=== PATIENT | female | born 1935 | race Caucasian/White ===

== ENCOUNTER → 2020-05-02 09:29 | Outpatient (CLI) | payer MEDICARE, SELFPAY ==
--- NOTE | 2020-05-02 10:00 | MRI_ITS ---
STUDY: MRI THORACIC SPINE WITHOUT CONTRAST REASON FOR EXAM: Female, 85 years old. Back pain, scoliosis TECHNIQUE: Standardized fat and water weighted pulse sequences were obtained in the sagittal and axial planes. COMPARISON: None. FINDINGS: Normal kyphosis of the thoracic spine. Mild dextroscoliosis of the thoracolumbar spine. T1-2, T2-3, T3-4, T4-5, T5-6, T6-7, T7-8, T8-9, T9-10, T10-11, T11-12: At T6/T7, T7/T8, T8/T9, T9/T10, T10/T11, and T11/T12 there are mild broad disc protrusions producing mild spinal stenosis but no cord compression. Associated Modic type I endplate changes at T7/T8 and T12/L1. Normal visualized thoracic cord. Normal conus medullaris that terminates at the L1.. The soft tissue structures are unremarkable. MRI/Spine Thoracic (Routine) IMPRESSION: Mild dextroscoliosis of the thoracolumbar spine with degenerative disc disease but no cord compression. Electronically Signed: Joselito Ashley MD at 12:00 EDT Tel , Service support ,
== END ==
PROVIDERS: PCP Internal Medicine Infectious Disease; Referring Provider Nurse Practitioner Family; Visit Provider Nurse Practitioner Family
DX: M41.34 Thoracogenic scoliosis, thoracic region (principal); M54.6 Pain in thoracic spine; M54.14 Radiculopathy, thoracic region; M47.814 Spondylosis without myelopathy or radiculopathy, thoracic region
CPT/HCPCS: 72146

== ENCOUNTER → 2021-02-27 18:00 | Outpatient (REF) | payer MEDICARE, SELFPAY ==
[2021-02-28 08:38] LABS: Mucous, Urine 0 SEEN /hpf (<or=2+); Red Blood Cells-Urine 0 SEEN /hpf (0-5)
[2021-02-28 09:27] LABS: Color, Urine Yellow (Yellow); Glucose, Dipstick Normal (Normal); Ketone-Dipstick Negative (Negative); Leukocyte Esterase-Dipstick 100 /ul (Negative); Nitrite-Dipstick Negative (Negative); Occult Blood-Urine Negative /ul (Negative); Protein-Dipstick Negative (Negative); Urine Bilirubin Dipstick Negative (Negative); Urine Clarity Sl. Cloudy (Clear); Urine Urobilinogen Normal (Normal)
[2021-02-28 09:41] LABS: Bacteria RARE /hpf (None Seen); Squamous Epithelial Cells - UA 0-5 SEEN /hpf (5-10); White Blood Cells 0-5 SEEN /hpf (0-5)
== END ==
LOC: OLS.DANBUR 18:00
DX: R41.82 Altered mental status, unspecified (principal)
CPT/HCPCS: 81001; 87086; 87088

== ENCOUNTER 2021-03-01 19:29 | Emergency (ER) | payer MEDICARE, SELFPAY ==
[2021-03-01 19:30] VITALS: BP 182/94; PULSE 99; RESP 18; TEMP 36.3; O2SAT 100; BMI 16.7
[2021-03-01 19:37] VITALS: O2SAT 100
--- NOTE | 2021-03-01 20:19 | EKG12_ITS ---
Test Reason : FALL Blood Pressure : / mmHG Vent. Rate : 070 BPM Atrial Rate : 070 BPM P-R Int : 156 ms QRS Dur : 086 ms QT Int : 382 ms P-R-T Axes : 080 -27 065 degrees QTc Int : 412 ms Normal sinus rhythm Normal ECG Confirmed by MYLA PONCE, ADEN ([id number]), visual effects editor NAKIA HOU ([id number]) on 03/03/2021 9:09:13 AM Referred By: GARCIA Confirmed By:ADEN LANZA MD
--- NOTE | 2021-03-01 20:21 | EDS_ITS ---
HPI History of Present Illness Chief Complaint: Fall Informant: patient and family Onset/Context/Timing Onset: Today Timing: Continuous Current Severity: Mild Maximum Severity: Mild Narrative Narrative: 85-year-old female history of dementia lives in a fdc. Daughter is at bedside and is given me the history. Poorly the patient had been doing well they thought she had developed a UTI on Tuesday and started on antibiotics. Today she was visiting with family at the fdc and after they left the fdc found her down on the floor. Reportedly was hypoxic. She does have a history of chronic pain. And she is DNR. Prior similar symptoms: Yes Recent Illness/Hospitalization: No PFSH PFSH Medical History (Updated 03/01/21 @ 20:43 by Franck Baird) Anxiety disorder COPD (chronic obstructive pulmonary disease) Dementia GERD (gastroesophageal reflux disease) HTN (hypertension) Hypercholesteremia Hyperglycemia Hypothyroid Major depression Osteoarthritis Sciatica of left side Allergy/AdvReac Type Severity Reaction Status Date / Time clindamycin AdvReac PT UNSURE Verified 03/01/21 19:37 OF REACTION nitrofurantoin AdvReac PT UNSURE Verified 03/01/21 19:37 [From Macrobid] OF REACTION Penicillins AdvReac PT UNSURE Verified 03/01/21 19:37 OF REACTION Sulfa (Sulfonamide AdvReac PT UNSURE Verified 03/01/21 19:37 Antibiotics) OF REACTION tizanidine AdvReac PT UNSURE Verified 03/01/21 19:37 OF REACTION Social History Smoking Status: Unknown if ever smoked ROS ROS ED ROS Narrative No recent illness. Patient denies any complaints. She is demented however. Review of Systems ROS Unobtainable: due to mental status Constitutional Constitutional ED: Denies chills or fever(s) Eyes Eyes: Denies change in vision ENT ENT ED: Denies sore throat Cardiovascular Cardiovascular: Denies chest pain Respiratory/Chest Respiratory/Chest: Denies cough or dyspnea Gastrointestinal Gastrointestinal: Denies abdominal pain, diarrhea, nausea or vomiting Genitourinary Genitourinary ED: Denies dysuria or hematuria Musculoskeletal Musculoskeletal: Denies myalgias Integumentary Denies rash Neurologic Neurologic: Denies headache(s) Psychiatric Psychiatric: Denies depression Endocrine Endocrinology: Denies polyuria Allergic/Immunologic Allergic/Immunologic ED: Denies urticaria EXAM Physical Exam Narrative Exam Narrative: Elderly female vital signs are stable. Her pulse ox is 100% on nonrebreather mask. Daughter is at bedside. HEENT exam unremarkable atraumatic pupils round reactive light. Neck nontender. Lungs clear to auscultation bilaterally. Heart regular rhythm no murmur. Chest wall nontender. Abdomen soft nontender. Normal bowel sounds no peritoneal signs. Pelvic girdle intact. No rotation or shortening of either hip. No pain with passive range of motion. Moving all 4 extremities. Nontender. No deformity. Neurologically she is awake. She is alert. Follows commands. Is confused and does have a history of dementia. Const Vital Signs: 03/01/21 19:30 03/01/21 19:37 03/01/21 20:36 Temperature 97.3 F L Temperature Source Temporal Pulse Rate 99 Respiratory Rate 18 Respiratory Effort Normal Non-Labored Respiratory Depth Normal Respiratory Pattern Normal Blood Pressure 182/94 H Blood Pressure Mean 123 Pulse Ox 100 100 Oxygen Delivery Method Non-Rebreather Non-Rebreather Room Air Oxygen Flow Rate (L/min) 15 10 HEENT Reports dry mucous membranes Negative for trauma or tenderness Mouth ED: Yes dry mucous membranes Mouth: dry mucous membranes Eyes PERRL and EOMs intact bilaterally Neck no lymphadenopathy, supple and no JVD General: Negative for tenderness Chest Wall inspection of chest normal and palpation of chest normal Resp normal respiratory effort and clear to auscultation bilaterally Cardio regular rate, regular rhythm and no murmurs GI normal to inspection, nondistended, normoactive bowel sounds, non-tender and non-distended Auscultation: normoactive bowel sounds Palpation: soft Back/Spine no CVA tenderness Extremity normal to inspection Neuro Sensorium / Orientation: alert Motor Exam: strength 5/5 throughout Psych mental status grossly normal Skin no rashes or lesions noted MDM MDM MDM Narrative Medical decision making narrative: Elderly female found down on the ground in a fdc and reportedly hypoxic. She will be worked up for an infectious etiology. There is no acute signs of any fractures or head injury. She is palliative care for chronic pain and I believe DNR per her daughter. Repeat exam patient is doing well at 9:55 PM. I discussed her test results of both her and her . They are both comfortable with her being discharged back to the fdc. wants to take her. Covid test is pending. Once she is discharged we will assist him in getting her back into the car. Lab Data Attestation: I reviewed the patient's lab results. Lab results narrative: CBC normal white count of 5. Hemoglobin of 10 which I suspect is chronic anemia. Electrolytes unremarkable normal creatinine and gap. Glucose 96. Liver enzymes normal. PT/INR PTT normal. UA normal. Labs: Laboratory Results - last 24 hr 03/01/21 03/01/21 03/01/21 20:46 20:46 20:46 WBC 5.2 RBC 3.57 L Hgb 10.2 L Hct 32.7 L MCV 91.6 MCH 28.6 MCHC 31.2 L RDW Std Deviation 47.4 H RDW Coeff of Jennifer 14.0 Plt Count 306 MPV 8.5 Immature Gran % (Auto) 0.200 Neut % (Auto) 65.8 Lymph % (Auto) 17.0 L [place] % (Auto) 14.3 H Eos % (Auto) 1.5 Baso % (Auto) 1.2 H Absolute Neuts (auto) 3.4 Absolute Lymphs (auto) 0.88 Nucleated RBC % 0 PT Cancelled INR Cancelled APTT Cancelled Sodium 138 Potassium 4.1 Chloride 106 Carbon Dioxide 29.0 Anion Gap 3 L BUN 18 Creatinine 1.04 H Estim Creat Clear Calc 31.32 Est GFR (MDRD) Af Amer 65 Est GFR (MDRD) Non-Af 54 L BUN/Creatinine Ratio 17.3 Glucose 96 Lactic Acid Calcium 9.4 Total Bilirubin 0.20 AST 26 ALT 22 Alkaline Phosphatase 70 Total Protein 6.4 Albumin 3.7 Globulin 2.7 Albumin/Globulin Ratio 1.4 Urine Color Urine Clarity Urine pH Ur Specific [place] Urine Protein Urine Glucose (UA) Urine Ketones Urine Occult Blood Urine Nitrite Urine Bilirubin Urine Urobilinogen Ur Leukocyte Esterase Urine RBC Urine WBC Ur Squamous Epith Cells Urine Bacteria Urine Mucus 03/01/21 03/01/21 03/01/21 20:46 21:05 21:17 WBC RBC Hgb Hct MCV MCH MCHC RDW Std Deviation RDW Coeff of Jennifer Plt Count MPV Immature Gran % (Auto) Neut % (Auto) Lymph % (Auto) Woodward % (Auto) Eos % (Auto) Baso % (Auto) Absolute Neuts (auto) Absolute Lymphs (auto) Nucleated RBC % PT 13.0 INR 1.0 APTT 28.9 Sodium Potassium Chloride Carbon Dioxide Anion Gap BUN Creatinine Estim Creat Clear Calc Est GFR (MDRD) Af Amer Est GFR (MDRD) Non-Af BUN/Creatinine Ratio Glucose Lactic Acid 1.2 Calcium Total Bilirubin AST ALT Alkaline Phosphatase Total Protein Albumin Globulin Albumin/Globulin Ratio Urine Color Yellow Urine Clarity Clear Urine pH 7.0 Ur Specific [place] 1.010 Urine Protein Negative Urine Glucose (UA) Normal Urine Ketones Negative Urine Occult Blood Negative Urine Nitrite Negative Urine Bilirubin Negative Urine Urobilinogen Normal Ur Leukocyte Esterase 25 H Urine RBC 0 SEEN Urine WBC 0-5 SEEN Ur Squamous Epith Cells 0-5 SEEN Urine Bacteria 0 SEEN Urine Mucus 0 SEEN Radiography Chest X-Ray - ED: 1 View, Read by ED Physician, Normal, Heart, Lungs, Mediastinum, Bony Structures, No Acute Disease and Chronic Changes Diagnostic Testing: Portable 1 view chest x-ray shows no acute abnormality. Interpreted by myself. Patient also had single view pelvis x-ray interpreted by myself shows no acute f racture. Normal bony structure. No dislocation. EKG Initial EKG: Attestation: I personally reviewed and interpreted this EKG as follows: Interpretation: Sinus Rhythm and No Acute Injury Pattern Comments: Normal sinus rhythm rate of 70 no acute signs of [place], ischemia or dysrhythmia. Discharge Plan Triage Chief Complaint: Fall ED Provider: Adonis Blair
[2021-03-01] MEDS: 0.9% Normal Saline 1,000 ML 999 ML IV (20:44)
--- NOTE | 2021-03-01 21:05 | RAD_ITS ---
STUDY: X-RAY CHEST REASON FOR EXAM: Female, 85 years old. Hypoxia TECHNIQUE: Single frontal view of the chest. COMPARISON: None. FINDINGS: The lungs are hyperinflated. There is no focal consolidation. Normal size heart. Normal mediastinum and lindsey. Normal visualized pulmonary arteries. There is atherosclerotic calcification of the aortic arch. There is a dextroscoliosis of the lower thoracic spine. Normal visualized ribs, clavicles, and shoulders. There is no demonstrated abnormality of the visualized soft tissue structures of the upper abdomen. RAD/Chest 1 View (Portable) IMPRESSION: No acute cardiopulmonary process. Electronically Signed: Jessika Massey MD at 21:58 EDT Tel , Service support ,
--- NOTE | 2021-03-01 21:05 | RAD_ITS ---
INDICATION: fall EXAMINATION/TECHNIQUE: X-RAY - XR Pelvis 1 or 2 Views COMPARISON: None. FINDINGS: No acute fracture or malalignment. No blastic or lytic lesions. Degenerative changes of the sacroiliac joints and lower lumbar spine. The soft tissues are unremarkable. RAD/Pelvis 1 or 2 Views IMPRESSION: No acute radiographic abnormalities. Degenerative changes of the sacroiliac joints and lower lumbar spine. Electronically Signed: Adria Hudson MD at 22:10 EDT Tel , Service support ,
[2021-03-01 21:07] LABS: Absolute Lymphocyte Count 0.88 X10^3/uL (0.83-4.51); Absolute Neutrophil Count 3.4 X10^3/uL (2.0-7.7); Basophil# 0.06 X10^3/uL; Basophil% 1.2 % (0-1); Eosinophil# 0.08 X10^3/uL; Eosinophils% 1.5 % (0-5); Hematocrit 32.7 % (37-47); Hemoglobin 10.2 g/dL (12.0-15.0); Lymphocyte # 0.88 X10^3/ul (0.83-4.51); Mean Corp Hgb Conc 31.2 g/dL (32-36); Mean Corpuscular Hgb 28.6 pg (27.0-32.0); Mean Corpuscular Volume 91.6 fL (81-99); Mean Platelet Vol. 8.5 fl (6.2-12.0); Monocyte# 0.74 X10^3/uL; Monocyte% 14.3 % (0-10); NRBC Flagged by Analyzer 0 % (0-5); Neutrophil # 3.41 X10^3/uL (2.7-7.7); Neutrophil % 65.8 % (47-70); Platelet Count 306 K/mm3 (150-450); RBC Distribution Width SD 47.4 fl (35.1-43.9); Red Blood Count 3.57 M/mm3 (4.2-5.4); White Blood Count 5.2 K/mm3 (4.4-11.0)
[2021-03-01 21:08] LABS: Bacteria 0 SEEN /hpf (None Seen); Mucous, Urine 0 SEEN /hpf (<or=2+); Red Blood Cells-Urine 0 SEEN /hpf (0-5)
[2021-03-01 21:10] LABS: Color, Urine Yellow (Yellow); Glucose, Dipstick Normal (Normal); Ketone-Dipstick Negative (Negative); Leukocyte Esterase-Dipstick 25 /ul (Negative); Nitrite-Dipstick Negative (Negative); Occult Blood-Urine Negative /ul (Negative); Protein-Dipstick Negative (Negative); Urine Bilirubin Dipstick Negative (Negative); Urine Clarity Clear (Clear); Urine Urobilinogen Normal (Normal)
[2021-03-01 21:18] LABS: ALB/GLOB Ratio 1.4 RATIO (0.9-2.4); AST(SGOT) 26 U/L (15-37); Alanine Aminotransfer ALT/SGPT 22 U/L (13-56); Albumin, Serum 3.7 g/dL (3.2-5.0); Alkaline Phosphatase 70 U/L (45-117); Anion Gap 3 (5-15); BUN 18 mg/dL (7-18); BUN/Creat Ratio 17.3 RATIO (10-20); Calcium,Total 9.4 mg/dL (8.5-10.1); Chloride 106 mmol/L (98-107); Creatinine, Serum 1.04 mg/dL (0.55-1.02); EST Glomerular Filtration Rate 54 mL/min (>60); Est Glom Filt Rate - Afr Amer 65 mL/min (>60); Estimated Creatinine Clearance 31.32 ml/min; Globulin 2.7 g/dL (2.2-4.2); Glucose 96 mg/dL (74-106); Potassium 4.1 mmol/L (3.5-5.1); Protein, Total 6.4 g/dL (6.4-8.2); Sodium Level 138 mmol/L (136-145)
[2021-03-01 21:24] LABS: Squamous Epithelial Cells - UA 0-5 SEEN /hpf (5-10); White Blood Cells 0-5 SEEN /hpf (0-5)
[2021-03-01 21:34] LABS: Partial Thromboplast Time 28.9 Seconds (24.1-36.2)
[2021-03-01 21:37] LABS: Lactic Acid 1.2 mmol/L (0.4-1.9)
[2021-03-01 22:01] VITALS: TEMP 37; O2SAT 97
== END 2021-03-01 22:29 | disposition home or self-care (01) ==
PROVIDERS: Emergency Provider Emergency Medicine
DX: R09.02 Hypoxemia (principal); N39.0 Urinary tract infection, site not specified; Z66 Do not resuscitate; E03.9 Hypothyroidism, unspecified; E78.00 Pure hypercholesterolemia, unspecified; F03.90 Unspecified dementia, unspecified severity, without behavioral disturbance, psychotic disturbance, mood disturbance, and anxiety; F32.9 Major depressive disorder, single episode, unspecified; F41.9 Anxiety disorder, unspecified; I10 Essential (primary) hypertension; J44.9 Chronic obstructive pulmonary disease, unspecified; K21.9 Gastro-esophageal reflux disease without esophagitis; M19.90 Unspecified osteoarthritis, unspecified site; G89.29 Other chronic pain; W18.39XA Other fall on same level, initial encounter; Y93.9 Activity, unspecified; Y92.129 Unspecified place in nursing home as the place of occurrence of the external cause; Y99.9 Unspecified external cause status; M54.32 Sciatica, left side; I70.0 Atherosclerosis of aorta
CPT/HCPCS: 71045; 72170; 80053; 81001; 83605; 85025; 85610; 85730; 87040; 87086; 87426; 93005; 96360; 99285

== ENCOUNTER → 2021-04-09 05:00 | Outpatient (REF) | payer MEDICARE, SELFPAY ==
[2021-04-09 09:04] LABS: Absolute Lymphocyte Count 0.82 X10^3/uL (0.83-4.51); Absolute Neutrophil Count 3.8 X10^3/uL (2.0-7.7); Basophil# 0.05 X10^3/uL; Basophil% 0.9 % (0-1); Eosinophil# 0.12 X10^3/uL; Eosinophils% 2.1 % (0-5); Hematocrit 33.4 % (37-47); Hemoglobin 10.5 g/dL (12.0-15.0); Lymphocyte # 0.82 X10^3/ul (0.83-4.51); Lymphocyte % 14.7 % (19-41); Mean Corp Hgb Conc 31.4 g/dL (32-36); Mean Corpuscular Hgb 28.8 pg (27.0-32.0); Mean Corpuscular Volume 91.5 fL (81-99); Mean Platelet Vol. 8.9 fl (6.2-12.0); Monocyte# 0.76 X10^3/uL; Monocyte% 13.6 % (0-10); NRBC Flagged by Analyzer 0 % (0-5); Neutrophil # 3.83 X10^3/uL (2.7-7.7); Neutrophil % 68.5 % (47-70); Platelet Count 299 K/mm3 (150-450); RBC Distribution Width CV 13.2 % (11.6-14.6); RBC Distribution Width SD 44.7 fl (35.1-43.9); Red Blood Count 3.65 M/mm3 (4.2-5.4); White Blood Count 5.6 K/mm3 (4.4-11.0)
[2021-04-09 09:20] LABS: ALB/GLOB Ratio 1.4 RATIO (0.9-2.4); AST(SGOT) 18 U/L (15-37); Alanine Aminotransfer ALT/SGPT 22 U/L (13-56); Albumin, Serum 4.3 g/dL (3.2-5.0); Alkaline Phosphatase 91 U/L (45-117); Anion Gap 3 (5-15); BUN 18 mg/dL (7-18); BUN/Creat Ratio 17.1 RATIO (10-20); Chloride 102 mmol/L (98-107); Creatinine, Serum 1.05 mg/dL (0.55-1.02); EST Glomerular Filtration Rate 53 mL/min (>60); Est Glom Filt Rate - Afr Amer 64 mL/min (>60); Glucose 98 mg/dL (74-106); Potassium 4.2 mmol/L (3.5-5.1); Protein, Total 7.3 g/dL (6.4-8.2); Sodium Level 136 mmol/L (136-145)
== END ==
LOC: OLS.DANBUR 05:00
PROVIDERS: Referring Provider Family Medicine; Visit Provider Family Medicine
DX: E03.9 Hypothyroidism, unspecified (principal); E78.00 Pure hypercholesterolemia, unspecified; R73.9 Hyperglycemia, unspecified; N18.9 Chronic kidney disease, unspecified
CPT/HCPCS: 36415; 80053; 85025

== ENCOUNTER → 2021-04-15 05:00 | Outpatient (REF) | payer MEDICARE, SELFPAY ==
[2021-04-15 08:58] LABS: Vitamin B12 359 pg/mL (211-911); Vitamin D,25 Hydroxy 13.1 ng/mL
== END ==
LOC: OLS.DANBUR 05:00
PROVIDERS: Visit Provider Family Medicine
DX: F03.90 Unspecified dementia, unspecified severity, without behavioral disturbance, psychotic disturbance, mood disturbance, and anxiety (principal); E55.9 Vitamin D deficiency, unspecified
CPT/HCPCS: 36415; 82306; 82607; 82746; 84443

== ENCOUNTER → 2024-03-16 | Outpatient (CLI) | payer MEDICARE, SELFPAY ==
--- NOTE | 2024-03-16 17:35 | CT_ITS ---
EXAM: CT ABDOMEN AND PELVIS WITHOUT AND WITH INTRAVENOUS CONTRAST CLINICAL INDICATION: URINARY RETENTION TECHNIQUE: Helically acquired images were obtained of the abdomen and pelvis without and with intravenous contrast. This CT exam was performed using one or more of the following dose reduction techniques: automated exposure control, adjustment of the mA and/or kV according to patient size, and/or use of iterative reconstruction technique. CONTRAST: IV 75mL [id number] RADIATION DOSE: CTDIvol = 13.58 mGy, DLP = 1576.84 mGy-cm COMPARISON: No relevant prior studies available. FINDINGS: LOWER THORAX: Pulmonary hyperinflation and flattening of the hemidiaphragms due to COPD. Lung bases are clear. No cardiomegaly. No pericardial effusion. ABDOMEN: LIVER: Unremarkable. Homogeneous. No focal mass. GALLBLADDER AND BILE DUCTS: Surgical clips in the gallbladder fossa area from cholecystectomy. No intrahepatic or extrahepatic biliary ductal dilatation. PANCREAS: Unremarkable. No focal cystic or solid mass. SPLEEN: Unremarkable. Normal size without focal cystic or solid mass. ADRENALS: Unremarkable. No nodules. KIDNEYS AND URETERS: Unremarkable. Normal renal size and position. No hydronephrosis. STOMACH AND BOWEL: Multiple diverticula along the sigmoid colon and fewer diverticula in the rectum but no acute diverticulitis. No stomach or bowel distention. PELVIS: APPENDIX: Nonvisualization of the appendix. No secondary signs of acute appendicitis. BLADDER: Unremarkable. No suspicious bladder mass or stone inside the underdistended urinary bladder. REPRODUCTIVE: Unremarkable as visualized. No mass. ABDOMEN and PELVIS: INTRAPERITONEAL SPACE: Unremarkable. No ascites or other fluid collection. No free air. BONES/JOINTS: Diffuse degenerative disc space height narrowing throughout the lumbar spine. No suspicious lytic or blastic abnormality. SOFT TISSUES: Unremarkable. No discrete abdominal or pelvic wall hernia. VASCULATURE: Unremarkable. Abdominal aorta is non-dilated. LYMPH NODES: Unremarkable. No enlarged lymph nodes. CT/CT Abd/Pelvis W/WO Contrast IMPRESSION: 1. Diverticulosis along the rectosigmoid colon without diverticulitis. 2. No suspicious abnormality of the underdistended urinary bladder. 3. No suspicious acute abnormality in the abdomen and pelvis. 4. Pulmonary hyperinflation and flattening of the hemidiaphragms due to COPD. Electronically Signed: Darrell Escamilla MD at 14:32 EDT ,
[2024-03-16 18:07] LABS: CREATININE FINGERSTICK 1.3 mg/dL (0.55-1.02)
== END | disposition home or self-care (01) ==
LOC: CT 17:29
PROVIDERS: Visit Provider Urology
DX: R33.9 Retention of urine, unspecified (principal)
CPT/HCPCS: 74178; Q9967